=== PATIENT | male | born 1995 | race Caucasian/White ===

== ENCOUNTER 2018-11-12 00:51 | Emergency (ER) | payer MEDICAID ==
[~2018-11-12] VITALS: Ht 180.3 cm; Wt 62.6 kg
[2018-11-12 00:56] VITALS: Ht 180.3 cm; Wt 62.6 kg
[2018-11-12 02:05] LABS: BASOPHIL % 0.4 % (0-2); PLATELET COUNT 204 x10^3mcL (130-400); RED CELL DISTRIBUTION WIDTH 12.6 % (11.5-14.5)
[2018-11-12 02:10] LABS: CALCIUM 8.7 mg/dL (8.5-10.1); CARBON DIOXIDE 31.5 mmol/L (21-32); CHLORIDE SERUM 102 mmol/L (98-107); CREATININE SERUM 0.9 mg/dL (0.7-1.3); GFR1 > 60 mL/min; GLUCOSE SERUM 95 mg/dL (74-106); POTASSIUM SERUM 4.1 mmol/L (3.5-5.1); SODIUM SERUM 140 mmol/L (136-145)
[2018-11-12 02:16] LABS: ALBUMIN 4.3 g/dL (3.4-5.0); ALKALINE PHOSPHATASE 98 U/L (46-116); ALT/SGPT 20 U/L (16-63); AST/SGOT 20 U/L (15-37); BILIRUBIN TOTAL 1.1 mg/dL (0.20-1.00); TOTAL PROTEIN, SERUM 7.8 g/dL (6.4-8.2)
[2018-11-12 03:14] VITALS: BP 106/60
== END 2018-11-12 03:14 | disposition home or self-care (01) ==
LOC: ED 00:51
PROVIDERS: Emergency Medicine
DX: R07.89 Other chest pain (principal); R06.02 Shortness of breath
CPT/HCPCS: 36415; J1885; Q0092

== ENCOUNTER 2019-05-16 11:03 | Emergency (ER) | payer MEDICAID ==
[~2019-05-16] VITALS: Ht 182.9 cm; Wt 62.6 kg
[2019-05-16 11:45] VITALS: BP 111/59; Ht 182.9 cm; Wt 62.6 kg
== END 2019-05-16 15:42 | disposition home or self-care (01) ==
LOC: ED 11:03
DX: J20.9 Acute bronchitis, unspecified (principal)
CPT/HCPCS: 87804